=== PATIENT | female | born 1995 | race American Indian/Alaskan Native ===

== ENCOUNTER 2018-06-22 20:37 | Emergency (ER) | payer OTHER, BC ==
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
[2018-06-22 22:59] LABS: HCG Qualitative,Urine Negative (Negative)
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
[2018-06-23 01:16] VITALS: BP 108/68
== END 2018-06-23 01:13 | disposition home or self-care (01) ==
LOC: ED 20:37
DX: S50.812A Abrasion of left forearm, initial encounter (principal); S50.811A Abrasion of right forearm, initial encounter; M94.0 Chondrocostal junction syndrome [Tietze]; R51 Headache; V47.5XXA Car driver injured in collision with fixed or stationary object in traffic accident, initial encounter; Y93.89 Activity, other specified; Y92.89 Other specified places as the place of occurrence of the external cause; Y99.8 Other external cause status
CPT/HCPCS: 71046; 71250; 81025; 93005; 93010; 99284